=== PATIENT | female | born 1990 | race Caucasian/White ===

== ENCOUNTER 2019-06-16 09:26 | Emergency (ER) | payer BC ==
[2019-06-16 09:39] VITALS: BMI 29.2
--- NOTE | 2019-06-16 10:18 | PDOC ---
History of Present Illness - General Chief Complaint: Pain Stated Complaint: LEFT FLANK BACK AND ABDOMINAL PAIN Time Seen by Provider: 06/16/19 09:34 - History of Present Illness Initial Comments: 06/16/19 11:22 28-year-old female with no significant past medical or past surgical history presents the emergency department with left flank pain since last night. Patient reports the pain began in her left flank but spread to her left upper quadrant and radiates down to her left lower quadrant. She reports one episode of associated vomiting last night. Vomiting was nonbloody nonbilious, pink in color after she ate watermelon. Also reporting some chills but no fevers. Denies any history of similar pain. Denies any urinary frequency, dysuria, hematuria, urgency. She is currently on her menstrual cycle. Denies any vaginal discharge. Took Tylenol in the middle of the night for the pain with minimal improvement. Denies any dizziness, headache, chest pain, shortness of breath, diarrhea, lower extremity edema. Past History - Past Medical History Allergies/Adverse Reactions: Allergies Allergy/AdvReac Type Severity Reaction Status Date / Time No Known Allergies Allergy Unverified 06/16/19 09:27 Home Medications: Ambulatory Orders Methocarbamol [Robaxin -] 750 mg PO QID PRN #12 tablet 06/16/19 COPD: No Other medical history: SCHOLIOSIS - Suicide/Smoking/Psychosocial Hx Smoking History: Never smoked Information on smoking cessation initiated: No Hx Alcohol Use: Yes (OCCASSIONAL) Drug/Substance Use Hx: No Review of Systems - Review of Systems Comments:: 06/16/19 11:24 GENERAL/CONSTITUTIONAL: No fever +chills. No weakness. HEAD, EYES, EARS, NOSE AND THROAT: No change in vision. No ear pain or discharge. No sore throat. GASTROINTESTINAL: + nausea, vomiting, no diarrhea or constipation. GENITOURINARY: No dysuria, frequency, or change in urination.+ L flank pain CARDIOVASCULAR: No chest pain or shortness of breath. RESPIRATORY: No cough, wheezing, or hemoptysis. MUSCULOSKELETAL: No joint or muscle swelling or pain. No neck or back pain. SKIN: No rash NEUROLOGIC: No headache, vertigo, loss of consciousness, or change in strength/ sensation. ENDOCRINE: No increased thirst. No abnormal weight change. HEMATOLOGIC/LYMPHATIC: No anemia, easy bleeding, or history of blood clots. ALLERGIC/IMMUNOLOGIC: No hives or skin allergy. *Physical Exam - Vital Signs Last Vital Signs Temp Pulse Resp BP Pulse Ox 98.9 F 68 16 155/89 99 06/16/19 09:27 06/16/19 09:27 06/16/19 09:27 06/16/19 09:27 06/16/19 09:27 - Physical Exam Comments: 06/16/19 11:25 GENERAL: Awake, alert, and fully oriented, in no acute distress but appears uncomfortable HEAD: No signs of trauma EYES: PERRLA, EOMI, sclera anicteric, conjunctiva clear ENT: Oropharynx clear without exudates. Moist mucosa NECK: Normal ROM, supple, no lymphadenopathy, JVD, or masses LUNGS: Breath sounds equal, clear to auscultation bilaterally. No wheezes, and no crackles HEART: Regular rate and rhythm, normal S1 and S2, no murmurs, rubs or gallops ABDOMEN: Soft, nontender, normoactive bowel sounds. No guarding, no rebound. No masses : +L CVAT EXTREMITIES: Normal range of motion, no edema. No clubbing or cyanosis. No cords, erythema, or tenderness NEUROLOGICAL: Normal speech, cranial nerves intact, equal strength and sensation b/l. Normal gait. SKIN: Warm, Dry, normal turgor, no rashes or lesions noted. ED Treatment Course - LABORATORY CBC & Chemistry Diagram: 06/16/19 10:35 06/16/19 10:35 - ADDITIONAL ORDERS Additional order review: Laboratory Results 06/16/19 06/16/19 09:32 09:32 Urine Color Yellow Urine Appearance Clear Urine pH 7.0 Urine Protein Negative Urine Glucose (UA) Negative Urine Ketones Negative Urine Blood 3+ H Urine Nitrite Negative Urine Bilirubin Negative Urine Urobilinogen 0.2 Ur Leukocyte Esterase Negative Urine HCG, Qual Negative Medical Decision Making - Medical Decision Making 06/16/19 11:26 28yo F presents to the ED with L flank pain since last night a/w 1 episode of emesis Vitals unremarkable DDx includes renal colic vs gastroenteritis vs gastritis vs ovarian cyst vs ectopic preg vs msk pain UPT neg Plan at this time for: -labs -spiral CT -symptomatic control -IVF -reassess 06/16/19 12:52 Labs, spiral CT, UA wnl UA with blood but pt on her period Pain/nausea improved initially with IV tylneol and zofran but now is back, only in L thoracic area, radiating around to LUQ Non pleuritic, no SOB Possible gastritis vs pleurisy? Plan for CXR and GI cocktail including reglan, maalox, pepcid Will reassess 06/16/19 14:55 CXR clear No relief with Gi cocktail, but nausea resolved On reassessment, pt has paraspinal ttp from upper to lower thoracic region which is worse with twisting movements Possibly musculoskeletal in nature? No recent trauma or heavy lifting Plan to try toradol for pain control, then likely DC with strict return precautions 06/16/19 15:46 Minimal improvement with toradol Will prescribe robaxin Pt improved, requests DC home Pt clinically stable for DC home I discussed the physical exam findings, ancillary test results and final diagnoses with the patient. I answered all of the patient's questions. The patient was satisfied with the care received and felt comfortable with the discharge plan and treatment plan. The patient will call their primary care physician within 24 hours to arrange follow-up and will return to the Emergency Department with any new, persistent or worsening symptoms. *DC/Admit/Observation/Transfer Diagnosis at time of Disposition: Back pain, Abdominal pain, Vomiting - Discharge Dispostion Disposition: HOME Condition at time of disposition: Stable Decision to Admit order: No - Prescriptions Prescriptions: Methocarbamol [Robaxin -] 750 mg PO QID PRN #12 tablet PRN Reason: Muscle Spasms - Referrals - Patient Instructions Printed Discharge Instructions: DI for Thoracic Back Pain Additional Instructions: Take tylenol 1000mg every 6 hours as needed for pain. Do not exceed 4000mg/day. Use the robaxin as needed for muscle spasm as prescribed. Follow up with your primary care doctor within 1-2 days for further evaluation. Return to the emergency department if you have any new, worsening, or concerning symptoms - Post Discharge Activity - Attestations Physician Attestion: 06/16/19 15:00 I, Dr. Allison Santillan MD, attest that this document has been prepared under my direction and personally reviewed by me in its entirety. I further attest, that it accurately reflects all work, treatment, procedures and medical decision -making performed by me.
[2019-06-16] MEDS ORDERED: SODIUM CHLORIDE 0.9% 500 ML INFUS.BAG IV ONE (10:25)
[2019-06-16] MEDS ORDERED: ONDANSETRON 4 MG/2 ML VIAL IVPUSH ONE (10:25)
[2019-06-16] MEDS ORDERED: ACETAMINOPHEN 1000 MG/100 ML VIAL (NON FORMULARY) IVPB ONE (10:26)
[2019-06-16 10:33] LABS: EPITHELIAL CELLS FEW /hpf
[2019-06-16] MEDS ORDERED: ACETAMINOPHEN INJECTION 100 ML IVPB ONE (10:42)
[2019-06-16] MEDS ORDERED: ONDANSETRON 4 MG/2 ML VIAL ONE (10:42)
[2019-06-16 10:54] LABS: BASO % 0.5 % (0-2.0); HEMATOCRIT 42.2 % (32.4-45.2); HEMOGLOBIN 13.9 GM/dl (10.7-15.3); LYMPH % 18.9 % (8-40); MCH 31.5 pg (25.7-33.7); MEAN CELL VOLUME 95.2 fl (80-96); MEAN PLT VOLUME 9.2 fl (7.5-11.1); MONO % 5.3 % (3.8-10.2); NEUT % 74.3 % (42.8-82.8); PLATELET COUNT 253 K/MM3 (134-434); RBC 4.43 M/mm3 (3.60-5.2); RDW 12.8 % (11.6-15.6); WHITE BLOOD COUNT 7.1 K/mm3 (4.0-10.8)
[2019-06-16 11:02] LABS: ALBUMIN 4.2 g/dl (3.4-5.0); BILIRUBIN,TOTAL 0.8 mg/dl (0.2-1); CREATININE 0.6 mg/dl (0.55-1.3); TOT PROT 7.1 g/dl (6.4-8.2)
[2019-06-16] MEDS ORDERED: METOCLOPRAMIDE HCL INJECTION 10 MG/2 ML VIAL IVPB ONE (12:38)
[2019-06-16] MEDS ORDERED: MAG HYDROX/AL HYDROX/SIMETH 30 ML UNIT-DOSE CUP PO ONE (12:38)
[2019-06-16] MEDS ORDERED: FAMOTIDINE 20 MG/50 ML IVPB 20 MG/50 ML MG IVPB ONE ×2 (12:38→13:42)
[2019-06-16] MEDS ORDERED: METOCLOPRAMIDE HCL INJECTION 10 MG/2 ML VIAL ONE (12:57)
[2019-06-16] MEDS ORDERED: MAG HYDROX/AL HYDROX/SIMETH 30 ML UNIT-DOSE CUP ONE (12:57)
[2019-06-16] MEDS ORDERED: KETOROLAC TROMETHAMINE 15 MG/ML VIAL IVPUSH ONE (14:55)
[2019-06-16] MEDS ORDERED: KETOROLAC TROMETHAMINE 30 MG/1 ML VIAL ONE (14:57)
[2019-06-16] MEDS ORDERED: METHOCARBAMOL 500 MG TABLET PO ONE (15:39)
[2019-06-16] MEDS ORDERED: METHOCARBAMOL 500 MG TABLET ONE (15:44)
[2019-06-16 15:50] VITALS: BP 101/68; PULSE 62; TEMP 98.6
== END 2019-06-16 15:59 | disposition home or self-care (01) ==
LOC: FER 09:26
PROC: 3E0337Z Introduction of Electrolytic and Water Balance Substance into Peripheral Vein, Percutaneous Approach (ICD-10-PCS; principal; 2019-06-16)
PROC: 3E033GC Introduction of Other Therapeutic Substance into Peripheral Vein, Percutaneous Approach (ICD-10-PCS; 2019-06-16)
PROC: 3E0333Z Introduction of Anti-inflammatory into Peripheral Vein, Percutaneous Approach (ICD-10-PCS; 2019-06-16)
DX: M54.9 Dorsalgia, unspecified (principal); R10.9 Unspecified abdominal pain; R11.10 Vomiting, unspecified
CPT/HCPCS: 36415; 71046-TC-FY; 74176-TC; 80053; 81003; 81015; 83690; 84484; 84703; 85025; 87086; 99283-25; J0131

== ENCOUNTER 2024-05-19 04:33 | Day surgery (SDC) | payer BC ==
[2024-05-17 10:55] VITALS: BMI 24.7
[2024-05-19] MEDS ORDERED: IBUPROFEN 400 MG TABLET (FP) PO PRN (12:18)
[2024-05-19] MEDS ORDERED: oxyCODONE HCL 5 MG TABLET PO PRN ×3 (12:18→13:13)
[2024-05-19] MEDS ORDERED: ACETAMINOPHEN 325 MG TABLET (FP) PO PRN (12:18)
[2024-05-19] MEDS ORDERED: ONDANSETRON 4 MG/2 ML VIAL IVPUSH PRN ×2 (12:19→13:13)
[2024-05-19] MEDS ORDERED: LACTATED RINGERS SOLUTION 1,000 ML IV SCH (13:15)
[2024-05-19] MEDS ORDERED: MIDAZOLAM HCL 2 MG/2 ML SINGLE DOSE VIAL ONE (13:50)
[2024-05-19 15:38] VITALS: RESP 18
[2024-05-19 16:12] VITALS: BP 115/71; PULSE 65; TEMP 97.7
== END 2024-05-19 16:05 | disposition home or self-care (01) ==
LOC: JASU-SURG 04:33
PROVIDERS: ATTEND Obstetrics & Gynecology
PROC: 0UDB8ZX Extraction of Endometrium, Via Natural or Artificial Opening Endoscopic, Diagnostic (ICD-10-PCS; principal; 2024-05-19 14:00)
DX: N92.0 Excessive and frequent menstruation with regular cycle (principal)
CPT/HCPCS: 81025; 88305-TC; 94760